=== PATIENT | female | born 1940 | race Caucasian/White ===

== ENCOUNTER → 2022-07-15 | Outpatient (CLI) | payer MEDICARE ==
[2022-07-15 10:50] LABS: Urine Bacteria NONE SEEN /hpf (None Seen); Urine Blood Negative /uL (Negative); Urine Budding Yeast FEW /hpf (None Seen); Urine Specific Gravity 1.013 (1.001-1.035); Urine WBC 90 /hpf (0 - 5)
[2022-07-15 11:17] LABS: Albumin 3.1 g/dL (3.4-5.0); Potassium 3.7 mmol/L (3.5-5.1)
[2022-07-15 11:23] LABS: BUN/Creatinine Ratio 17.9 (10.0-20.0); Bilirubin, Total 0.5 mg/dL (0.2-1.0); Total Protein 7.3 g/dL (6.4-8.2)
== END | disposition home or self-care (01) ==
LOC: LAB 10:06
PROVIDERS: ATTEND Internal Medicine
DX: E11.22 Type 2 diabetes mellitus with diabetic chronic kidney disease (principal); E03.9 Hypothyroidism, unspecified; E78.5 Hyperlipidemia, unspecified; E11.69 Type 2 diabetes mellitus with other specified complication
CPT/HCPCS: 36415; 80053; 80061; 81001; 82043; 83036; 84439; 84443; 84479; 87086

== ENCOUNTER → 2023-01-24 | Outpatient (CLI) | payer OTHER ==
[2023-01-24 10:18] LABS: Urine Bacteria NONE SEEN /hpf (None Seen); Urine Blood Negative /uL (Negative); Urine Clarity Clear (Clear); Urine Color Yellow (Yellow); Urine Hyaline Cast FEW /lpf (0 - 2); Urine Protein, UAD Negative (Negative); Urine Urobilinogen Normal (Negative); Urine WBC 1 /hpf (0 - 5); Urine pH 5.5 (5.0-8.0)
[2023-01-24 10:51] LABS: Alanine Aminotransferase 26 U/L (7-40); Albumin 4.2 g/dL (3.2-4.8); Alkaline Phosphatase 75 U/L (46-116); Anion Gap 9 (5-15); Aspartate Aminotransferase 21 U/L (13-40); BUN/Creatinine Ratio 21.3 (10.0-20.0); Blood Urea Nitrogen 19 mg/dL (9-23); Calcium 9.4 mg/dL (8.5-10.1); Carbon Dioxide 26 mmol/L (20-30); Chloride 106 mmol/L (98-107); Cholesterol 133 mg/dL (< 200); Glucose 115 mg/dL (74-106); HDL Cholesterol 40 mg/dL (40-59); LDL Cholesterol 76 mg/dL (< 100); Sodium 141 mmol/L (136-145); Triglycerides 99 mg/dL (< 150)
[2023-01-24 10:52] LABS: Bilirubin, Total 0.6 mg/dL (0.2-1.0); Total Protein 7.3 g/dL (5.7-8.2)
[2023-01-24 11:48] LABS: Uric Acid 6.7 mg/dL (3.1-7.8)
== END | disposition home or self-care (01) ==
LOC: LAB 09:35
PROVIDERS: ATTEND Internal Medicine
DX: E11.40 Type 2 diabetes mellitus with diabetic neuropathy, unspecified (principal); E03.9 Hypothyroidism, unspecified; M10.9 Gout, unspecified; E78.5 Hyperlipidemia, unspecified; R30.0 Dysuria
CPT/HCPCS: 36415; 80053; 80061; 81001; 82043; 82570; 83036; 84436; 84443; 84550; 87086

== ENCOUNTER → 2023-04-23 | Outpatient (CLI) | payer OTHER ==
[2023-04-23 09:59] LABS: Anion Gap 7 (5-15); Carbon Dioxide 29 mmol/L (20-30); Chloride 104 mmol/L (98-107); Potassium 4.4 mmol/L (3.5-5.1); Sodium 140 mmol/L (136-145)
[2023-04-23 10:00] LABS: Calcium 9.6 mg/dL (8.5-10.1)
[2023-04-23 10:04] LABS: Creatinine, Urine 48.61 mg/dL (30.0-125.0)
[2023-04-23 10:05] LABS: Blood Urea Nitrogen 14 mg/dL (9-23); Glucose 112 mg/dL (74-106); Triglycerides 121 mg/dL (< 150)
[2023-04-23 10:06] LABS: LDL Cholesterol 86 mg/dL (< 100)
[2023-04-23 10:07] LABS: Cholesterol 146 mg/dL (< 200); HDL Cholesterol 45 mg/dL (40-59)
== END | disposition home or self-care (01) ==
LOC: LAB 09:17
PROVIDERS: ATTEND Internal Medicine
DX: E11.69 Type 2 diabetes mellitus with other specified complication (principal); E78.5 Hyperlipidemia, unspecified
CPT/HCPCS: 36415; 80048; 80061; 82043; 82570; 83036

== ENCOUNTER → 2023-11-24 | Outpatient (CLI) | payer OTHER, MEDICARE ==
[2023-11-24 11:36] LABS: Alanine Aminotransferase 22 U/L (7-40); Alkaline Phosphatase 81 U/L (46-116); Triglycerides 84 mg/dL (< 150)
[2023-11-24 11:37] LABS: Albumin 4.1 g/dL (3.2-4.8); Anion Gap 0 (5-15); Aspartate Aminotransferase 20 U/L (13-40); BUN/Creatinine Ratio 17.1 (10.0-20.0); Bilirubin, Total 0.8 mg/dL (0.2-1.0); Blood Urea Nitrogen 14 mg/dL (9-23); Calcium 9.5 mg/dL (8.7-10.4); Carbon Dioxide 32 mmol/L (20-30); Chloride 106 mmol/L (98-107); Cholesterol 154 mg/dL (< 200); Glucose 111 mg/dL (74-106); HDL Cholesterol 51 mg/dL (40-59); LDL Cholesterol 91 mg/dL (< 100); Potassium 4.2 mmol/L (3.5-5.1); Sodium 138 mmol/L (136-145)
[2023-11-24 11:45] LABS: Free T3 2.75 pg/mL (2.3-4.2); Free T4 (Free Thyroxine) 1.22 ng/dL (0.89-1.76)
[2023-11-24 11:48] LABS: Total Protein 7.2 g/dL (5.7-8.2)
== END | disposition home or self-care (01) ==
LOC: LAB 10:56
PROVIDERS: ATTEND Internal Medicine
DX: E11.69 Type 2 diabetes mellitus with other specified complication (principal); E78.5 Hyperlipidemia, unspecified; E55.9 Vitamin D deficiency, unspecified
CPT/HCPCS: 36415; 80053; 80061; 82306; 83036; 84439; 84443; 84481

== ENCOUNTER → 2024-04-12 | Outpatient (CLI) | payer OTHER ==
[2024-04-12 11:12] LABS: Basophils # (auto) 0.1 10 ^3/uL (0-0.2); Basophils % (auto) 0.8 % (0.0-2.0); Eosinophils # (auto) 0.4 10 ^3/uL (0-0.8); Eosinophils % (auto) 4.8 % (0.0-7.0); Hematocrit 44.4 % (36.0-46.0); Hemoglobin 14.9 g/dL (12.2-16.2); Lymphocytes # (auto) 1.6 10 ^3/uL (0.4-5.4); Lymphocytes % (auto) 18.8 % (10.0-50.0); Mean Corpuscular Hemoglobin 32.1 pg (28.0-32.0); Mean Corpuscular Hgb Conc. 33.4 g/dL (32.0-36.0); Mean Corpuscular Volume 96.1 fL (80.0-100.0); Monocytes # (auto) 0.7 10 ^3/uL (0-1.3); Monocytes % (auto) 8.5 % (0.0-12.0); Neutrophils # (auto) 5.6 10 ^3/uL (1.6-8.6); Neutrophils % (auto) 67.1 % (37.0-80.0); Nucleated Red Blood Cells % 0.1 %; Platelet Count (auto) 267 10^3/uL (140-450); Red Blood Cells 4.63 10^6/uL (4.0-5.20); Red Cell Distribution Width 13.6 % (11.8-14.3); White Blood Cell 8.3 10^3/uL (4.4-10.8)
[2024-04-12 11:27] LABS: Urine Bacteria FEW /hpf (None Seen); Urine Blood Negative /uL (Negative); Urine Clarity Clear (Clear); Urine Color Light-Yellow (Yellow); Urine Protein, UAD Negative (Negative); Urine Specific Gravity 1.012 (1.001-1.035); Urine Squamous Epithelial Cell FEW /hpf (<5); Urine Urobilinogen Normal (Negative); Urine WBC 25 /hpf (0 - 5)
[2024-04-12 12:01] LABS: Erythrocyte Sedimentation Rate 8 mm/hr (0-20)
[2024-04-12 12:42] LABS: % Iron Saturation 31.1 % (15-50); Alanine Aminotransferase 24 U/L (7-40); Albumin 4.4 g/dL (3.2-4.8); Alkaline Phosphatase 93 U/L (46-116); Anion Gap 9 (5-15); Aspartate Aminotransferase 26 U/L (13-40); BUN/Creatinine Ratio 19.8 (10.0-20.0); Blood Urea Nitrogen 17 mg/dL (9-23); Calcium 9.8 mg/dL (8.7-10.4); Carbon Dioxide 28 mmol/L (20-31); Chloride 103 mmol/L (98-107); Cholesterol 177 mg/dL (< 200); Creatine Kinase IFCC 137 U/L (34-145); HDL Cholesterol 56 mg/dL (40-59); Sodium 140 mmol/L (136-145); Triglycerides 97 mg/dL (< 150)
[2024-04-12 12:43] LABS: Bilirubin, Total 0.5 mg/dL (0.2-1.0); Total Protein 7.5 g/dL (5.7-8.2)
[2024-04-12 12:45] LABS: Folate (Folic Acid) 14.67 ng/mL (>5.38); T3 Total 1.1 ng/mL (0.60-1.81)
[2024-04-12 12:46] LABS: Ferritin 250.5 ng/mL (10-291)
[2024-04-12 12:47] LABS: Free T4 (Free Thyroxine) 1.15 ng/dL (0.89-1.76)
[2024-04-12 12:48] LABS: Glucose 123 mg/dL (74-106); LDL Cholesterol 115 mg/dL (< 100)
[2024-04-12 12:59] LABS: Uric Acid 6.3 mg/dL (3.1-7.8)
== END | disposition home or self-care (01) ==
LOC: LAB 10:22
PROVIDERS: ATTEND Internal Medicine
DX: I70.0 Atherosclerosis of aorta (principal); E11.40 Type 2 diabetes mellitus with diabetic neuropathy, unspecified; E03.9 Hypothyroidism, unspecified; G61.9 Inflammatory polyneuropathy, unspecified; G99.0 Autonomic neuropathy in diseases classified elsewhere; R30.0 Dysuria
CPT/HCPCS: 36415; 80053; 80061; 81001; 82043; 82306; 82550; 82607; 82728; 82746; 83036; 83540; 83550; 84439; 84443; 84480; 84550; 85025; 85652; 87086

== ENCOUNTER → 2024-07-06 | Outpatient (CLI) | payer OTHER ==
[2024-07-06 10:59] LABS: Chloride 105 mmol/L (98-107); Potassium 4.1 mmol/L (3.5-5.1); Sodium 140 mmol/L (136-145)
[2024-07-06 11:00] LABS: Anion Gap 5 (5-15); Carbon Dioxide 30 mmol/L (20-31)
[2024-07-06 11:01] LABS: Calcium 10.3 mg/dL (8.7-10.4)
[2024-07-06 11:04] LABS: Creatinine, Urine 82.82 mg/dL (30.0-125.0)
[2024-07-06 11:05] LABS: BUN/Creatinine Ratio 18.5 (10.0-20.0); Blood Urea Nitrogen 17 mg/dL (9-23)
[2024-07-06 11:09] LABS: Glucose 123 mg/dL (74-106)
[2024-07-06 12:24] LABS: Triglycerides 129 mg/dL (< 150)
[2024-07-06 12:26] LABS: Cholesterol 182 mg/dL (< 200); HDL Cholesterol 51 mg/dL (40-59)
[2024-07-06 12:43] LABS: LDL Cholesterol 110 mg/dL (< 100)
== END | disposition home or self-care (01) ==
LOC: LAB 10:07
PROVIDERS: ATTEND Internal Medicine
DX: E11.69 Type 2 diabetes mellitus with other specified complication (principal); E78.5 Hyperlipidemia, unspecified
CPT/HCPCS: 36415; 80048; 80061; 82043; 82570; 83036

== ENCOUNTER → 2024-10-04 | Outpatient (CLI) | payer OTHER ==
[2024-10-04 13:00] LABS: Urine Bacteria FEW /hpf (None Seen); Urine Blood Negative /uL (Negative); Urine Clarity Turbid (Clear); Urine Color Colorless (Yellow); Urine Protein, UAD TRACE (Negative); Urine Squamous Epithelial Cell MOD /hpf (<5); Urine Urobilinogen Normal (Negative); Urine WBC 51 /HPF (0-5); Urine WBC Clumps PRESENT /hpf (None Seen)
[2024-10-04 13:13] LABS: Albumin 4.6 g/dL (3.2-4.8); Alkaline Phosphatase 82 U/L (46-116); Anion Gap 10 (5-15); Aspartate Aminotransferase 39 U/L (13-40); BUN/Creatinine Ratio 16.7 (10.0-20.0); Blood Urea Nitrogen 14 mg/dL (9-23); Calcium 10.3 mg/dL (8.7-10.4); Carbon Dioxide 29 mmol/L (20-31); Chloride 103 mmol/L (98-107); Cholesterol 170 mg/dL (< 200); Glucose 115 mg/dL (74-106); Sodium 142 mmol/L (136-145); Total Protein 7.6 g/dL (5.7-8.2)
[2024-10-04 13:14] LABS: Alanine Aminotransferase 40 U/L (7-40); Bilirubin, Total 0.8 mg/dL (0.2-1.0); HDL Cholesterol 47 mg/dL (40-59); LDL Cholesterol 110 mg/dL (< 100); Triglycerides 156 mg/dL (< 150)
[2024-10-04 13:25] LABS: Creatinine, Urine 56.41 mg/dL (30.0-125.0)
== END | disposition home or self-care (01) ==
LOC: LAB 12:10
PROVIDERS: ATTEND Internal Medicine
DX: E78.5 Hyperlipidemia, unspecified (principal); E03.5 Myxedema coma; E55.9 Vitamin D deficiency, unspecified; R73.9 Hyperglycemia, unspecified; R30.0 Dysuria
CPT/HCPCS: 36415; 80053; 80061; 81001; 82043; 82306; 82570; 83036; 84436; 84443; 84480

== ENCOUNTER 2025-01-06 10:03 | Outpatient (CLI) | payer OTHER ==
[2025-01-06 11:13] LABS: Urine Protein, UAD TRACE (Negative)
[2025-01-06 11:46] LABS: Alanine Aminotransferase 32 U/L (7-40); Albumin 4.4 g/dL (3.2-4.8); Alkaline Phosphatase 67 U/L (46-116); Anion Gap 11 (5-15); BUN/Creatinine Ratio 19.5 (10.0-20.0); Blood Urea Nitrogen 17 mg/dL (9-23); Calcium 9.5 mg/dL (8.7-10.4); Carbon Dioxide 29 mmol/L (20-31); Chloride 102 mmol/L (98-107); Cholesterol 160 mg/dL (< 200); HDL Cholesterol 51 mg/dL (40-59); Potassium 3.9 mmol/L (3.5-5.1); Sodium 142 mmol/L (136-145); Total Protein 7.6 g/dL (5.7-8.2); Triglycerides 106 mg/dL (< 150)
[2025-01-06 11:47] LABS: Bilirubin, Total 0.7 mg/dL (0.2-1.0)
[2025-01-06 12:11] LABS: Glucose 111 mg/dL (74-106)
== END 2025-01-06 17:00 | disposition home or self-care (01) ==
LOC: LAB 10:03
PROVIDERS: ATTEND Internal Medicine
DX: E11.69 Type 2 diabetes mellitus with other specified complication (principal); E78.5 Hyperlipidemia, unspecified; E03.9 Hypothyroidism, unspecified; R30.0 Dysuria
CPT/HCPCS: 36415; 80053; 80061; 81001; 83036; 84436; 84443; 84480; 87086